=== PATIENT | male | born 1950 | race Two or more races ===

== ENCOUNTER 2022-08-20 12:08 | Emergency (ER) | payer OTHER ==
[~2022-08-20] VITALS: Ht 180.3 cm; Wt 63.0 kg
[2022-08-20] MEDS ORDERED: ERLEADA60 MG PO (12:28)
== END 2022-08-20 17:43 | disposition home or self-care (01) ==
LOC: ER 12:08
DX: C61 Malignant neoplasm of prostate (principal); R63.0 Anorexia; R53.81 Other malaise

== ENCOUNTER 2022-09-13 09:09 | Emergency (ER) | payer OTHER ==
[~2022-09-13] VITALS: Ht 180.3 cm; Wt 59.4 kg
[~2022-09-13 09:09] MED LIST: ERLEADA60 MG PO
== END 2022-09-13 16:57 | disposition home or self-care (01) ==
LOC: ER 09:09
DX: R10.9 Unspecified abdominal pain (principal)